=== PATIENT | male | born 1945 | race Caucasian/White ===

== ENCOUNTER 2023-04-30 20:05 | Emergency (ER) | payer MEDICARE ==
[2023-04-30 21:17] VITALS: RESP 18
--- NOTE | 2023-04-30 22:41 | ED ---
Wound/Laceration HPI - General Source: patient, RN notes reviewed Mode of arrival: ambulatory Limitations: no limitations <Nyla Arciniega - Last Filed: 04/30/23 22:40> <Rome Guerrier - Last Filed: 05/01/23 03:23> - General Chief Complaint: Wound/Laceration Stated Complaint: left foot laceration Time Seen by Provider: 04/30/23 22:38 - History of Present Illness Initial Comments: This is a 77-year-old male who presents to the emergency department for a scab on his left ankle. States that he injured this a while ago, however today it started bleeding. He is not on any blood thinners. He currently has is wrapped states that while it was bleeding a lot earlier, he believes that the bleeding is now stopped. (Nyla Arciniega) This is a 77-year-old male who presents emergency department for a scab on his inner aspect of the left ankle. The patient stated that he did have a scab the re at that time any worse compression stockings noted that he had some blood in his sock and stated that every time he moved it started to "squirt." The patient did state that he used skin glue at home and stated that the area in question was no longer bleeding however wanted to be evaluated in the emergency department. The patient did not suffer any acute trauma to the area. The patient was resting in bed comfortably without any further acute pain or complaints. (Rome Guerrier) - Related Data Allergies Allergy/AdvReac Type Severity Reaction Status Date / Time Sulfa (Sulfonamide Allergy Unknown Verified 04/30/23 21:12 Antibiotics) Review of Systems ROS Other: All systems not noted in ROS Statement are negative. <Nyla Arciniega - Last Filed: 04/30/23 22:40> ROS Other: All systems not noted in ROS Statement are negative. <Rome Guerrier - Last Filed: 05/01/23 03:23> ROS Statement: Those systems with pertinent positive or pertinent negative responses have been documented in the HPI. Past Medical History Past Medical History: Hypertension Past Surgical History: Hernia Repair Additional Past Surgical History / Comment(s): bowel surgery Past Psychological History: No Psychological Hx Reported Smoking Status: Former smoker Past Alcohol Use History: None Reported Past Drug Use History: None Reported <Nyla Arciniega - Last Filed: 04/30/23 22:40> General Exam Limitations: no limitations <Nyla Arciniega - Last Filed: 04/30/23 22:40> Limitations: no limitations General appearance: alert, in no apparent distress Head exam: Present: atraumatic, normocephalic, normal inspection Eye exam: Present: normal appearance, PERRL Pupils: Present: normal accommodation ENT exam: Present: normal exam, normal oropharynx, mucous membranes moist Neck exam: Present: normal inspection, full ROM Respiratory exam: Present: normal lung sounds bilaterally Cardiovascular Exam: Present: regular rate, normal rhythm, normal heart sounds GI/Abdominal exam: Present: soft, normal bowel sounds Extremities exam: Present: normal inspection, full ROM Back exam: Present: normal inspection, full ROM Neurological exam: Present: alert, oriented X3, CN II-XII intact Psychiatric exam: Present: normal affect, normal mood Skin exam: Present: warm, dry, abrasion (Abrasion with dried blood around the medial aspect of the left ankle without any open or bleeding lacerations.) <Rome Guerrier - Last Filed: 05/01/23 03:23> - General Exam Comments Initial Comments: Visual Physical Exam Vital signs reviewed General: Well-appearing, nontoxic, no acute distress. Head: Normocephalic, atraumatic Eyes: PERRLA, EOMI ENT: Airway patent Chest: Nonlabored breathing Skin: No visual rash, normal skin tone Neuro: Alert and oriented 3 Musculoskeletal: No gross abnormalities (Nyla Arciniega) Course Vital Signs 04/30/23 05/01/23 21:13 01:55 Temperature 98.6 F 97.6 F Pulse Rate 53 L 53 L Respiratory 18 18 Rate Blood Pressure 143/61 176/64 O2 Sat by Pulse 98 99 Oximetry Medical Decision Making <Rome Guerrier - Last Filed: 05/01/23 03:23> - Medical Decision Making Was pt. sent in by a medical professional or institution (Dr. PA, [employer], urgent care, hospital, or shelter...) When possible be specific @ -No Did you speak to anyone other than the patient for history (EMS, parent, family, police, friend...)? What history was obtained from this source @ -No Did you review nursing and triage notes (agree or disagree)? Why? @ -I reviewed and agree with nursing and triage notes Were old charts reviewed (outside hosp., previous admission, EMS record, old EKG, old radiological studies, urgent care reports/EKG's, shelter records)? Report findings @ -No old charts were reviewed Differential Diagnosis (chest pain, altered mental status, abdominal pain women, abdominal pain men, vaginal bleeding, weakness, fever, dyspnea, syncope, headache, dizziness, GI bleed, back pain, seizure, CVA, palpatations, mental health)? @ -Abrasion, laceration, contusion EKG interpreted by me (3pts min.). @ -None X-rays interpreted by me (1pt min.). @ -None done CT interpreted by me (1pt min.). @ -None done U/S interpreted by me (1pt. min.). @ -None done What testing was considered but not performed or refused? (CT, X-rays, U/S, labs)? Why? @ -None What meds were considered but not given or refused? Why? @ -None Did you discuss the management of the patient with other professionals (professionals i.e. , PA, [employer], lab, RT, psych nurse, social work assistant, bobbin trucker, teacher, parking enforcement officer, director case)? Give summary @ -No Was smoking cessation discussed for >3mins.? @ -No Was critical care preformed (if so, how long)? @ -No Were there social determinants of health that impacted care today? How? (Homelessness, low income, unemployed, alcoholism, drug addiction, transportation, low edu. Level, literacy, decrease access to med. care, senior living, rehab)? @ -No Was there de-escalation of care discussed even if they declined (Discuss DNR or withdrawal of care, Hospice)? DNR status @ -No What co-morbidities impacted this encounter? (DM, HTN, Smoking, COPD, CAD, Cancer, CVA, ARF, Chemo, Hep., AIDS, mental health diagnosis, sleep apnea, morbid obesity)? @ -None Was patient admitted / discharged? Hospital course, mention meds given and route, prescriptions, significant lab abnormalities, going to OR and other pertinent info. @ -The patient was seen and evaluated emergency department. Physical exam, the patient was resting in bed without any acute distress. Vital signs admission were stable. On physical exam, there was an abrasion noted without any bleeding. There was no laceration to be repaired therefore the wound was thoroughly cleaned and bacitracin was applied. The area in question was bandaged and the patient remained stable and was stable for discharge home. The patient was advised to continue to monitor the area in question is report back to emergency department if he had worsening and uncontrolled bleeding. The patient was agreeable to this and all his questions were answered appropriately. The patient was discharged home in stable condition. Undiagnosed new problem with uncertain prognosis? @ -No Drug Therapy requiring intensive monitoring for toxicity (Heparin, Nitro, Insulin, Cardizem)? @ -No Were any procedures done? @ -No Diagnosis/symptom? @ -Left medial ankle abrasion Acute, or Chronic, or Acute on Chronic? @ -Acute Uncomplicated (without systemic symptoms) or Complicated (systemic symptoms)? @ -Uncomplicated Side effects of treatment? @ -No Exacerbation, Progression, or Severe Exacerbation? @ -No Poses a threat to life or bodily function? How? (Chest pain, [place], [place], pneumonia, PE, COPD, DKA, ARF, appy, cholecystitis, CVA, Diverticulitis, Homicidal, Suicidal, threat to staff... and all critical care pts) @ -No (Rome Guerrier) Disposition <Nyla Arciniega - Last Filed: 04/30/23 22:40> Is patient prescribed a controlled substance at d/c from ED?: No Time of Disposition: 03:00 <Rome Guerrier - Last Filed: 05/01/23 03:23> Clinical Impression: Abrasion Disposition: HOME SELF-CARE Condition: Stable Instructions (If sedation given, give patient instructions): Abrasion (ED) Referrals: Morena Elliott MD [Primary Care Provider] - 1-2 days
[2023-05-01] MEDS ORDERED: BACITRACIN OINT 1 EACH PACKET TOPICAL ONE (03:11)
[2023-05-01 04:00] VITALS: BP 152/64; PULSE 50; TEMP 98.6
== END 2023-05-01 04:03 | disposition home or self-care (01) ==
LOC: EC 20:05
DX: S90.512A Abrasion, left ankle, initial encounter (principal); I10 Essential (primary) hypertension; Z87.891 Personal history of nicotine dependence; Z88.2 Allergy status to sulfonamides; W26.8XXA Contact with other sharp object(s), not elsewhere classified, initial encounter
CPT/HCPCS: 99283